=== PATIENT | female | born 1995 | race Hispanic/Latino ===

== ENCOUNTER 2020-11-09 18:36 | Emergency (ER) | payer OTHER, MEDICAID, SELFPAY ==
[2020-11-09 18:54] VITALS: BP 126/58; PULSE 66; RESP 16; TEMP 37.2; O2SAT 99
[2020-11-09 19:16] LABS: Appearance Urine UA CLEAR; Bilirubin Urine UA NEGATIVE (NEGATIVE); Color Urine UA YELLOW; Glucose Urine UA NEGATIVE (Negative); Ketones Urine UA NEGATIVE (NEGATIVE); Leukocyte Esterase Urine UA NEGATIVE (NEGATIVE); Nitrite Urine UA NEGATIVE (Negative); Occult Blood Urine UA NEGATIVE (Negative); Protein Urine UA NEGATIVE (Negative); Specific Gravity Urine UA 1.025 (1.000-1.035); Urobilinogen Urine UA 0.2 E.U./dL (0.2)
[2020-11-09 19:30] LABS: Bacteria Urine None Seen; Culture Indicated Urine Cult Not Indicated; Mucus Urine 1+ (Negative); RBC Urine None Seen (0-5/HPF); Squamous Epithelial Cell Urine 0-1 /HPF (0-5/HPF); WBC Urine 0-1/HPF (0-5/HPF)
--- NOTE | 2020-11-09 20:04 | DI.US.S_ITS ---
PROCEDURE: US OB <= 14 WEEKS FETUS INDICATIONS: PELVIC CRAMPING AND BLEEDING. . OUTSIDE/PRIOR DATING DATA: Last menstrual period (LMP): 09/11/2020 LMP-based estimated date of delivery (KAT): 06/18/2021 First dating scan (date and location): 11/09/2020 at [facility] Estimated date of delivery (KAT) from first dating scan: 07/05/2021 TECHNIQUE: Real-time scanning was performed of the fetus and maternal pelvic organs, with image documentation. Endovaginal scanning was also performed to better visualize the fetus and maternal ovaries. COMPARISON: None. FINDINGS: Embryo: Intrauterine gestational sac is seen with yolk sac and small pole measuring 0.4 cm, compatible with a gestational age of 6 weeks 0 days. Heart rate: 90 beats per minute Measurement variability in dating: +/- 4 weeks by LMP, +/- 7 days by mean sac diameter (use before 6 weeks gestation if crown-rump length not able to be measured), +/- 5 days by crown-rump length (up to 8 weeks 6 days gestation), +/- 7 days by crown-rump length (up to 13 weeks 6 days gestation). Maternal organs: A right ovarian corpus luteum cyst measures 1.6 x 1.6 x 1.1 cm. A small avascular hypoechoic area is seen adjacent to the gestational sac measuring 0.6 x 1.1 x 0.2 cm. IMPRESSION: 1. Single live intrauterine with measurements compatible with a 6 weeks 0 day gestation. heart rate 90 beats per minute. 2. Small perigestational sac hemorrhage measuring 0.6 x 1.1 x 0.2 cm. Dictated by: Yon Whitmore M.D. on 11/09/2020 at 21:18 Approved by: Yon Whitmore M.D. on 11/09/2020 at 21:22
[2020-11-09 20:16] LABS: Hemoglobin 10.6 g/dL (12.0-16.0)
[2020-11-09 21:05] LABS: HCG Quantitative /Beta subunit 21266 mIU/mL
--- NOTE | 2020-11-10 02:05 | ED_ITS ---
HPI - Female Genitourinary General Chief complaint: Vaginal Bleeding Stated complaint: 8 Wks Preg, Bleeding and Cramping Time Seen by Provider: 11/09/20 19:15 History of Present Illness HPI Narrative: 24-year-old female nonsmoker with noncontributory medical history presents by herself and a chief complaint of lower back spasming and cramping as well as suprapubic spasming with mild vaginal bleeding in the passage of some clots over the past day or so. She is a at 8 weeks and has had a visit but no ultrasound. She does not know her blood type. She is not dizzy nor weak or lightheaded. She denies any fever or chills. She has no chest pain or shortness of breath. She states the bleeding has been minimal and questions the passage of clots or even stringy tissue. Review of Systems Review of Systems Narrative: GENERAL: Denies chills, fatigue, malaise, fever, sweats. HEENT: Denies sinus pain, ear pain, sore throat, difficulty swallowing, dizziness. RESPIRATORY: Denies dyspnea, cough, wheezing, hemoptysis, sputum. CARDIOVASCULAR: Denies chest pain, palpitations, orthopnea, edema, GASTROINTESTINAL: Denies nausea, vomiting, abdominal pain, diarrhea, constipat ion, melena. : See HPI MUSCULOSKELETAL: denies weakness, joint pain, or bony pain SKIN: Denies rash, skin lesions, or other NEUROLOGIC: Denies weakness, headache, numbness, change in speech, confusion, seizures, incoordination. PSYCHIATRIC: No concerning psychosocial issues. 12 point review of systems is negative except for those stated above Patient History alcohol intake frequency: holidays/special occasions only Substance Use Type: does not use Exam Narrative Exam Narrative: GENERAL: [24] year old patient appears stated age. Well- developed patient, in mild distress. HEAD: Atraumatic. Normocephalic. EYES: Pupils equal round and reactive. Extraocular motions intact. No scleral icterus. No injection or drainage. ENT: Nose without bleeding, purulent drainage. Throat without erythema, tonsillar hypertrophy or exudate. Airway patent. NECK: Trachea midline. Non tender CARDIOVASCULAR: Regular rate and rhythm without murmurs, gallops, or rubs. RESPIRATORY: Clear to auscultation. Breath sounds equal bilaterally. No wheezes, rales, or rhonchi. GASTROINTESTINAL: Abdomen soft, non-tender, nondistended. EXTREMITIES: No edema or joint tenderness. BACK: Nontender without deformity or crepitance. No flank tenderness. NEURO: AOx3. SKIN: No rash or erythema of visible areas Initial Vital Signs Initial Vital Signs: Vital Signs Temperature 98.9 F 11/09/20 18:54 Pulse Rate 66 11/09/20 18:54 Respiratory Rate 16 11/09/20 18:54 Blood Pressure 126/58 L 11/09/20 18:54 Pulse Oximetry 99 11/09/20 18:54 Course Orders Ordered: ED Orders 11/09/20 19:00 Urinalysis and Microscopic Stat 11/09/20 20:04 US OB <= 14 weeks fetus Stat 11/09/20 20:05 ABO RH Type Stat HCG Quantitative /Beta subunit Stat Hemoglobin and Hematocrit Stat Vital Signs Vital signs: Vital Signs - 8 hr 11/09/20 18:54 Temperature 98.9 F Pulse Rate 66 Respiratory Rate 16 Blood Pressure 126/58 L Pulse Oximetry 99 MDM - Female Genitourinary Lab Data Result diagrams: 11/09/20 20:05 Labs: Lab Results 11/09/20 11/09/20 11/09/20 Range/Units 19:00 20:05 20:05 Hgb (12.0-16.0) g/dL Hct (36-46) % HCG, Quant 03743 mIU/mL Urine Color Yellow Urine Appearance Clear Urine pH 6.0 (4.5-8.0) Ur Specific [place] 1.025 (1.000-1.035) Urine Protein Negative (Negative) Urine Glucose (UA) Negative (Negative) g/dL Urine Ketones Negative (NEGATIVE) Urine Occult Blood Negative (Negative) Urine Nitrate Negative (Negative) Urine Bilirubin Negative (NEGATIVE) Urine Urobilinogen 0.2 (0.2) E.U./dL Ur Leukocyte Esterase Negative (NEGATIVE) Urine RBC None seen (0-5/HPF) Urine WBC 0-1/hpf (0-5/HPF) Ur Squamous Epith Cells 0-1 /hpf (0-5/HPF) Urine Bacteria None seen (None) Urine Mucus 1+ H (Negative) Ur Culture Indicated? Cult not indicated Blood Type O Positive 11/09/20 Range/Units 20:05 Hgb 10.6 L (12.0-16.0) g/dL Hct 33.0 L (36-46) % HCG, Quant mIU/mL Urine Color Urine Appearance Urine pH (4.5-8.0) Ur Specific [place] (1.000-1.035) Urine Protein (Negative) Urine Glucose (UA) (Negative) g/dL Urine Ketones (NEGATIVE) Urine Occult Blood (Negative) Urine Nitrate (Negative) Urine Bilirubin (NEGATIVE) Urine Urobilinogen (0.2) E.U./dL Ur Leukocyte Esterase (NEGATIVE) Urine RBC (0-5/HPF) Urine WBC (0-5/HPF) Ur Squamous Epith Cells (0-5/HPF) Urine Bacteria (None) Urine Mucus (Negative) Ur Culture Indicated? Blood Type Imaging Data US - [employer]: Radiologist's Impression: Chart Viewer Diagnostics Subcategory All Activity ??:?? All Time ??:?? All Subcategories Filter Laboratory Imaging Microbiology Pathology Blood Bank Tests Cardiovascular Other Specialty DATE TYPE STATUS REF RANGE/AUTHOR Hx 11/09/20 20:04 Ultrasound Signed HaimYon Vera Barton 24, F?1995 MRN#? [id number] DEP ER,?Main ED??? 162.56cm 79.379kg BMI: 30.0kg/m? Vaginal Bleeding Acc#? [id number] Resus Status Not Ordered No Hx Avail Special Indicators No Data to Display Home Meds Prescription Monitoring Program No Data to Display Allergies No Data to Display Problems ? ONSET Vaginal bleeding Threatened Vital Signs 11/09/20 18:54 BP 126/58?L Pulse 66? Resp 16? Temp 98.9 F? O2 Sat 99? Delivery Room Air? Diagnostics Reports Vera Barton??24??F??1995 ? Allergy/Adv: Not Recorded Close Ultrasound (Signed) Yon Whitmore - 11/09/20 Launch?[address] [address] Ultrasound Report Signed Patient: Vera Barton MR#: [id number] : 1995 Acct:[id number] Age/Sex: 24 / F Date of Service: 11/09/20 Loc: ED Accession Number: [id number] ?? Procedure: US OB <= 14 weeks fetus Ordering Provider: Joaquin Ugaret D.O. PROCEDURE:? US OB <= 14 WEEKS FETUS ? INDICATIONS:? PELVIC CRAMPING AND BLEEDING. . ? OUTSIDE/PRIOR DATING DATA:? Last menstrual period (LMP):? 09/11/2020 LMP-based estimated date of delivery (KAT):? 06/18/2021 First dating scan (date and location):? 11/09/2020 at [facility] Estimated date of delivery (KAT) from first dating scan:? 07/05/2021 ? TECHNIQUE:? Real-time scanning was performed of the fetus and maternal pelvic organs, with image documentation.? Endovaginal scanning was also performed to better visualize the fetus and maternal ovaries.? ? COMPARISON:? None. ? FINDINGS:? ? Embryo:? Intrauterine gestational sac is seen with yolk sac and small pole measuring 0.4 cm, compatible with a gestational age of 6 weeks 0 days. Heart rate:? 90 beats per minute ? Measurement variability in dating:? +/- 4 weeks by LMP, +/- 7 days by mean sac diameter (use before 6 weeks gestation if crown-rump length not able to be measured), +/- 5 days by crown-rump length (up to 8 weeks 6 days gestation), +/- 7 days by crown-rump length (up to 13 weeks 6 days gestation).? ? Maternal organs:? A right ovarian corpus luteum cyst measures 1.6 x 1.6 x 1.1 cm.? A small avascular hypoechoic area is seen adjacent to the gestational sac measuring 0.6 x 1.1 x 0.2 cm.? ? ? IMPRESSION:? 1. Single live intrauterine with measurements compatible with a 6 weeks 0 day gestation.? heart rate 90 beats per minute. ? 2. Small perigestational sac hemorrhage measuring 0.6 x 1.1 x 0.2 cm.? Dictated by: Yon Whitmore M.D. on 11/09/2020 at 21:18 ? ? Approved by: Yon Whitmore M.D. on 11/09/2020 at 21:22 ? MDM Narrative Medical decision making narrative: Multiple diagnoses considered including ectopic , miscarriage, implantation bleeding and others. Ectopic thought unlikely given reassuring ultrasound which notes intrauterine . Miscarriage considered but bleeding is minimal as our remaining symptoms. Patient was, however consult on the potential of this being early miscarriage and the lack of any interventions available should that be the course. Patient given return precautions and questions answered to her apparent satisfaction. Discharge Plan Departure Patient Disposition: Home Clinical Impression: Vaginal bleeding, Threatened Instructions: DI for Vaginal Bleeding During Activity Restrictions/Additional Instructions: *You have been diagnosed with [vaginal bleeding during early . Your ultrasound is very reassuring, labs are unremarkable *What to do: *Please continue to take your regular medications as directed. [ ] New medication prescriptions sent to your pharmacy: [ ] [ ] New medication written as a paper prescription [x ] No new medications given *Please follow up with your primary care provider in 2-3 days, call for an appointment. Let them know you were seen in the Emergency Department and that we ask that you be seen in follow up. We will electronically transmit a record of today's note if your PCP is in our system *If you do not have a primary care provider please contact the [facility] Resource line at [phone]. They will ask some questions about your medical history and help get you set up with a doctor in the community. *Return to Emergency Department if you should have any new, worsening or concerning symptoms, such as heavier bleeding, saturating a pad per hour for multiple hours, increasing pain, fever greater than 101 F or other concerning symptoms
== END 2020-11-09 20:48 | disposition home or self-care (01) ==
PROVIDERS: Emergency Provider Emergency Medicine
DX: O20.0 Threatened abortion (principal); Z3A.01 Less than 8 weeks gestation of pregnancy
CPT/HCPCS: 36415; 76801; 76817; 81001; 84702; 85014; 85018; 86900; 86901; 99283; 99284